=== PATIENT | female | born 2000 | race Caucasian/White ===

== ENCOUNTER 2021-05-14 16:29 | Emergency (ER) | payer OTHER ==
[2021-05-14 16:38] VITALS: BP 109/63; PULSE 66; TEMP 97; BMI 29.5
== END 2021-05-14 18:21 | disposition home or self-care (01) ==
LOC: JERFT 16:29
DX: M72.2 Plantar fascial fibromatosis (principal)
CPT/HCPCS: 73610-TC-LT-FY; 73630-TC-LT; 99283-25

== ENCOUNTER 2021-10-10 00:12 | Emergency (ER) | payer OTHER ==
[2021-10-10 01:06] VITALS: BMI 29.5
[2021-10-10] MEDS ORDERED: ACETAMINOPHEN 1000 MG/100 ML BAG IVPB ONE (02:41)
[2021-10-10 03:15] LABS: URINE APPEARANCE CLEAR; URINE BILIRUBIN NEGATIVE (NEGATIVE); URINE COLOR YELLOW; URINE GLUCOSE (UA) NEGATIVE (NEGATIVE); URINE KETONE NEGATIVE (NEGATIVE); URINE LEUK ESTERASE NEGATIVE (NEGATIVE); URINE NITRITE NEGATIVE (NEGATIVE); URINE PROTEIN NEGATIVE (NEGATIVE); URINE UROBILINOGEN 0.2 mg/dL (0.2-1.0)
[2021-10-10 03:18] LABS: HCG,QUALITATIVE URINE Negative
[2021-10-10] MEDS ORDERED: ACETAMINOPHEN INJECTION 100 ML IVPB ONE (03:20)
[2021-10-10 03:45] LABS: BASO % 0.6 % (0-2.0); EOS % 2.1 % (0-4.5); HEMATOCRIT 36.9 % (32.4-45.2); HEMOGLOBIN 12.4 GM/dL (10.7-15.3); LYMPH % 36.9 % (8-40); MCH 30.3 pg (25.7-33.7); MCHC 33.5 g/dl (32.0-36.0); MEAN CELL VOLUME 90.4 fl (80-96); MEAN PLT VOLUME 10.4 fl (7.5-11.1); MONO % 7.1 % (3.8-10.2); NEUT % 53.3 % (42.8-82.8); PLATELET COUNT 194 10^3/uL (134-434); RBC 4.09 M/mm3 (3.60-5.2); RDW 14.4 % (11.6-15.6); WHITE BLOOD COUNT 8.3 K/mm3 (4.0-10.0)
[2021-10-10 04:04] LABS: ALBUMIN 3.8 g/dl (3.4-5.0); BLOOD UREA NITROGEN 10.8 mg/dL (7-18); CALCIUM 9.3 mg/dL (8.5-10.1)
[2021-10-10 04:07] LABS: CREATININE 0.7 mg/dL (0.55-1.3)
[2021-10-10 04:09] LABS: BILIRUBIN,TOTAL 0.2 mg/dL (0.2-1); TOT PROT 7.4 g/dl (6.4-8.2)
[2021-10-10] MEDS ORDERED: SODIUM CHLORIDE 1,000 ML IV STA (05:15)
[2021-10-10] MEDS ORDERED: KETOROLAC TROMETHAMINE 15 MG/ML VIAL IVPUSH ONE ×2 (05:32→09:11)
[2021-10-10] MEDS ORDERED: KETOROLAC TROMETHAMINE 15 MG/ML VIAL ONE ×2 (05:41→09:18)
[2021-10-10 06:36] VITALS: BP 116/72; PULSE 70; RESP 18; TEMP 97.6
== END 2021-10-10 10:04 | disposition home or self-care (01) ==
LOC: JER 00:12
PROC: 3E0333Z Introduction of Anti-inflammatory into Peripheral Vein, Percutaneous Approach (ICD-10-PCS; principal; 2021-10-10)
PROC: 3E0333Z Introduction of Anti-inflammatory into Peripheral Vein, Percutaneous Approach (ICD-10-PCS; 2021-10-10)
PROC: 3E0333Z Introduction of Anti-inflammatory into Peripheral Vein, Percutaneous Approach (ICD-10-PCS; 2021-10-10)
PROC: 3E0337Z Introduction of Electrolytic and Water Balance Substance into Peripheral Vein, Percutaneous Approach (ICD-10-PCS; 2021-10-10)
DX: R10.32 Left lower quadrant pain (principal)
CPT/HCPCS: 36415; 74177-TC; 76830-TC; 80053; 81003; 84703; 85025; 87086; 99285-25

== ENCOUNTER 2022-03-08 11:05 | Emergency (ER) | payer OTHER ==
[2022-03-08 11:34] VITALS: BP 130/82; PULSE 103; RESP 18; TEMP 98.2; BMI 29.0
[2022-03-08] MEDS ORDERED: FLUCONAZOLE 150 MG TABLET PO ONE ×2 (12:31→12:32)
[2022-03-08 13:04] LABS: HCG,QUALITATIVE URINE Negative
[2022-03-08 13:15] LABS: PH,URINE 7.5 (5.0-8.0); URINE APPEARANCE CLEAR; URINE BILIRUBIN NEGATIVE (NEGATIVE); URINE COLOR YELLOW; URINE GLUCOSE (UA) NEGATIVE (NEGATIVE); URINE KETONE NEGATIVE (NEGATIVE); URINE LEUK ESTERASE NEGATIVE (NEGATIVE); URINE NITRITE NEGATIVE (NEGATIVE); URINE PROTEIN NEGATIVE (NEGATIVE)
== END 2022-03-08 13:20 | disposition home or self-care (01) ==
LOC: JERFT 11:05 → JER 11:05 → JERFT 13:20
DX: B37.9 Candidiasis, unspecified (principal)
CPT/HCPCS: 36415; 81003; 84703; 87070; 87077; 87086; 87205; 87491; 87591; 99283-25